=== PATIENT | male | born 1985 | race Caucasian/White ===

== ENCOUNTER 2022-07-08 14:55 | Emergency (ER) | payer BC, OTHER ==
[2022-07-08 15:26] VITALS: BP 148/94; PULSE 67; RESP 18; TEMP 98.6; BMI 24.3
== END 2022-07-08 16:56 | disposition home or self-care (01) ==
LOC: FER 14:55
DX: K43.9 Ventral hernia without obstruction or gangrene (principal)
CPT/HCPCS: 74176-TC; 81003; 99284-25

== ENCOUNTER 2023-10-06 06:38 | Emergency (ER) | payer BC, OTHER ==
[2023-10-06 06:47] VITALS: BP 124/86; PULSE 105; RESP 18; TEMP 101.4; BMI 24.3
[2023-10-06] MEDS ORDERED: DEXAMETHASONE SOD PHOSPHATE 10 MG/1 ML VIAL ONE (07:35)
[2023-10-06] MEDS ORDERED: KETOROLAC TROMETHAMINE 30 MG/1 ML VIAL ONE (07:35)
[2023-10-06] MEDS: DEXAMETHASONE SOD PHOSPHATE 10 MG/1 ML VIAL IM ONE (07:41)
[2023-10-06] MEDS: KETOROLAC TROMETHAMINE 30 MG/1 ML VIAL IM ONE (07:41)
[2023-10-06 09:54] LABS: THROAT:GRP A STREP NOT DETECTED (NOTDETECTED)
== END 2023-10-06 08:07 | disposition home or self-care (01) ==
LOC: FER 06:38
PROC: 3E023GC Introduction of Other Therapeutic Substance into Muscle, Percutaneous Approach (ICD-10-PCS; principal; 2023-10-06)
PROC: 3E023GC Introduction of Other Therapeutic Substance into Muscle, Percutaneous Approach (ICD-10-PCS; 2023-10-06)
DX: J02.9 Acute pharyngitis, unspecified (principal); M79.10 Myalgia, unspecified site; R05.9 Cough, unspecified; Z20.822 Contact with and (suspected) exposure to COVID-19
CPT/HCPCS: 0241U-QW; 87651; 99284-25; J1100